=== PATIENT | male | born 2000 | race Caucasian/White ===

== ENCOUNTER 2018-11-12 10:26 | Emergency (ER) | payer BC, OTHER ==
[2018-11-12 13:32] VITALS: BP 150/80
[2018-11-12] MEDS ORDERED: Ondansetron ODT TAB* 4 MG PO ONE (14:01)
[2018-11-12] MEDS ORDERED: Acetaminophen TAB* 325 MG PO ONE (14:01)
--- NOTE | 2018-11-12 14:15 | UC ---
FLU HPI - HPI Summary HPI Summary: Pt presents with c/o generalized fatigue, malaise, fever, cough, decreased appetite X 3 days. - History of Current Complaint Chief Complaint: UCRespiratory Stated Complaint: FEVER, VOMITING Time Seen by Provider: 11/12/18 13:35 Hx Obtained From: Patient Onset/Duration: Sudden Onset, Lasting Days, Still Present, Worse Since - osnet Severity Currently: Mild Severity Initially: Moderate Pain Intensity: 7 Associated Signs & Symptoms: Positive: Fever, Myalgia, Cough, Sore Throat, Nasal Congestion, Headache Related Hx: Possible Flu/Infectious Exposure - Risk Factors Influenza Risk Factors: Negative - Allergy/Home Medications Allergies/Adverse Reactions: Allergies Allergy/AdvReac Type Severity Reaction Status Date / Time morphine Allergy Hives Verified 11/14/18 12:55 Penicillins Allergy Hives Verified 11/14/18 12:55 Home Medications: Home Medications Ibuprofen TAB* [Advil TAB*] 400 mg PO Q6H PRN 11/12/18 [History Confirmed ] PMH/Surg Hx/FS Hx/Imm Hx Previously Healthy: Yes - Surgical History Surgical History: Yes Surgery Procedure, Year, and Place: appendectomy. gallbladder - Family History Known Family History: Negative: Hypertension, Diabetes - Social History Occupation: Student Lives: With Family Alcohol Use: Weekly Substance Use Type: Marijuana Substance Use Comment - Amount & Last Used: daily usage Smoking Status (MU): Never Smoked Tobacco Have You Smoked in the Last Year: No - Immunization History Vaccination Up to Date: Yes Review of Systems All Other Systems Reviewed And Are Negative: Yes Constitutional: Positive: Fever, Chills, Fatigue Skin: Positive: Negative Eyes: Positive: Negative ENT: Positive: Sore Throat, Ear Ache, Nasal Discharge, Sinus Congestion, Sinus Pain/Tenderness Respiratory: Positive: Cough Cardiovascular: Positive: Negative Gastrointestinal: Positive: Negative Genitourinary: Positive: Negative Motor: Positive: Negative Neurovascular: Positive: Negative Musculoskeletal: Positive: Myalgia Neurological: Positive: Headache Psychological: Positive: Negative Is Patient Immunocompromised?: No Physical Exam Triage Information Reviewed: Yes Appearance: Ill-Appearing Vital Signs: Initial Vital Signs Temp 100 F 11/12/18 13:25 Pulse 103 11/12/18 13:25 Resp 16 11/12/18 13:25 BP 150/80 11/12/18 13:25 Pulse Ox 95 11/12/18 13:25 Vital Signs Reviewed: Yes Eye Exam: Normal ENT: Positive: Nasal congestion, TM bulging, TM red Dental Exam: Normal Neck exam: Normal Respiratory Exam: Normal Cardiovascular Exam: Normal Musculoskeletal Exam: Normal Neurological Exam: Normal Psychological Exam: Normal Skin Exam: Normal Diagnostics - Laboratory Diagnostic Studies Completed/Ordered: rapid flu: negative - Radiology No standard instances Radiology Interpretation Completed By: Radiologist - IMPRESSION: NO EVIDENCE FOR ACTIVE CARDIOPULMONARY DISEASE. Flu Course/Dx - Differential Dx/Diagnosis Differential Diagnosis/HQI/PQRI: Influenza, Upper Respiratory Infection Provider Diagnosis: Bronchitis Discharge - Sign-Out/Discharge Documenting (check all that apply): Patient Departure All imaging exams completed and their final reports reviewed: Yes - Discharge Plan Condition: Stable Disposition: HOME Prescriptions: Azithromycin TAB* [Zithromax TAB (Z-DEANNA) 250 mg #6 tabs] 2 tab PO .TODAY, THEN 1 DAILY #1 deanna Benzonatate CAP* [Tessalon 100 MG CAP*] 100 mg PO Q8H PRN #21 cap PRN Reason: Cough Patient Education Materials: Acute Bronchitis (ED) Referrals: Mahin Modi MD [Primary Care Provider] - If Needed - Billing Disposition and Condition Condition: STABLE Disposition: Home - Attestation Statements Provider Attestation: Per institutional requirements, I have reviewed the chart, however, I was not consulted specifically or made aware of this patient by the midlevel provider. I did not personally evaluate, interact with , or disposition this patient.
== END 2018-11-12 14:37 | disposition home or self-care (01) ==
LOC: UCCORT 10:26
DX: J40 Bronchitis, not specified as acute or chronic (principal); Z88.0 Allergy status to penicillin; Z88.5 Allergy status to narcotic agent
CPT/HCPCS: 71046; 99212; A9270-GY; G0463

== ENCOUNTER 2018-11-14 11:13 | Emergency (ER) | payer OTHER ==
--- NOTE | 2018-11-14 13:20 | UC ---
HPI Febrile Illness - HPI Summary HPI Summary: He has been sick since about 6 days with fever, vomiting, diarrhea. He is home from college. No known meningitis contacts at school or dorm. His imm are UTD including meningitis. He has not been able to eat or drink hardly anything. He is becoming confused or foggy per mother. He has a headache as well. Flu here was neg and he has been on z pack. - History of Current Complaint Chief Complaint: UCGI Time Seen by Provider: 11/14/18 12:55 Hx Obtained From: Patient, Family/Park Recreation Manager Hx From Patient Unobtainable Due To: Altered Mental Status Onset/Duration: Started Days Ago Timing: Constant, Lasting Days Initial Severity: Moderate Current Severity: Severe Pain Intensity: 8 Aggravating Factors: Other: - eating. Alleviating Factors: Nothing Associated Signs and Symptoms: Chills, Cough, Diarrhea, Dizziness, Headache, Myalgia, Nausea, Vomiting, Weakness - Allergy/Home Medications Allergies/Adverse Reactions: Allergies Allergy/AdvReac Type Severity Reaction Status Date / Time morphine Allergy Hives Verified 11/14/18 12:55 Penicillins Allergy Hives Verified 11/14/18 12:55 PMH/Surg Hx/FS Hx/Imm Hx Previously Healthy: Yes - Surgical History Surgical History: Yes Surgery Procedure, Year, and Place: appendectomy. gallbladder - Family History Known Family History: Negative: Hypertension, Diabetes - Social History Occupation: Student Alcohol Use: Occasionally Substance Use Type: Marijuana Substance Use Comment - Amount & Last Used: daily usage Smoking Status (MU): Never Smoked Tobacco Have You Smoked in the Last Year: No - Immunization History Vaccination Up to Date: Yes Review of Systems All Other Systems Reviewed And Are Negative: Yes Constitutional: Positive: Fever, Chills ENT: Positive: Sinus Congestion Respiratory: Positive: Cough Gastrointestinal: Positive: Vomiting, Diarrhea Musculoskeletal: Positive: Myalgia Neurological: Positive: Headache, Weakness Is Patient Immunocompromised?: No Physical Exam Triage Information Reviewed: Yes Completion Of Physical Exam Limited Due To: Altered Mental Status - at first he appears malaise but become weaker and has syncope during my exam. Appearance: Well-Nourished Vital Signs: Initial Vital Signs Temp 102.6 F 11/14/18 12:56 Pulse 110 11/14/18 12:56 Resp 20 11/14/18 12:56 BP 117/65 11/14/18 12:56 Pulse Ox 97 11/14/18 12:56 Vital Signs Reviewed: Yes Eyes: Positive: Conjunctiva Inflamed ENT: Positive: Hearing grossly normal, Pharynx normal, Nasal congestion, TM bulging, TM red, Other - Jasen purulent effusions of the ears.. Negative: Tonsillar swelling, Tonsillar exudate, Trismus, Muffled voice, Sinus tenderness Neck: Positive: Supple, Nontender, No Lymphadenopathy. Negative: Nuchal Rigidity Respiratory: Positive: Chest non-tender, Lungs clear, Normal breath sounds, No respiratory distress, No accessory muscle use. Negative: Respiratory distress, Decreased breath sounds, Accessory muscle use, Crackles, Rhonchi, Stridor, Wheezing Cardiovascular: Positive: No Murmur, Pulses Normal, Brisk Capillary Refill, Tachycardia Abdomen Description: Positive: No Organomegaly, Soft. Negative: Distended, Guarding Musculoskeletal: Positive: Strength Intact, ROM Intact, No Edema Neurological: Positive: Fatigued, Lethargic Psychological: Positive: Abnormal Response To Family Skin: Negative: Rashes Course/Dx - Course Assessment/Plan: d/w [facility] at [place] has heard my assessment. I discuss possibility of meningitis versus encephalitis versus sepsi or viral illness. We start IV fluids and tylenol and motrin. I request rocephin 2gm with IV fluids but I am told that this is not possible to infuse in route with EMT. He would need to finish IV abx then be transported and delay in care is not an option. At time of EMS arrival he is now alert and laying down with IV and fluids running. - Febrile Illness Differential Diagnoses: Bacteremia, Cellulitis, Encephalitis, Endocarditis, Fever of Unknown Origin, Medication Reaction, Meningitis, Pneumonia, [place] Spotted Fever, Sepsis, Viremia - Diagnoses Provider Diagnosis: Fever, Altered mental state, Otitis media Discharge - Sign-Out/Discharge Documenting (check all that apply): Patient Departure All imaging exams completed and their final reports reviewed: No Studies - Discharge Plan Condition: Guarded Disposition: TRANS HIGHER LVL OF CARE FAC Referrals: Mahin Modi MD [Primary Care Provider] - - Billing Disposition and Condition Condition: GUARDED Disposition: Trans Higher Lvl of Care Fac
[2018-11-14] MEDS ORDERED: Ibuprofen TAB* 600 MG PO ONE (13:28)
[2018-11-14] MEDS ORDERED: Acetaminophen TAB* 325 MG PO ONE (13:28)
[2018-11-14] MEDS ORDERED: NS 0.9% 1000 ML* 1,000 ML IV ONE (13:29)
[2018-11-14] MEDS ORDERED: Acetaminophen TAB* 325 MG ONE (13:30)
[2018-11-14] MEDS ORDERED: Ibuprofen TAB* 200 MG ONE (13:30)
[2018-11-14 13:44] VITALS: BP 133/60
== END 2018-11-14 13:26 | disposition short-term general hospital (02) ==
LOC: UCCORT 11:13
DX: R50.9 Fever, unspecified (principal); R41.82 Altered mental status, unspecified; H66.90 Otitis media, unspecified, unspecified ear; Z88.0 Allergy status to penicillin; Z88.5 Allergy status to narcotic agent
CPT/HCPCS: 99213; A9270-GY; G0463

== ENCOUNTER 2019-10-16 12:06 | Emergency (ER) | payer OTHER ==
[2019-10-16 13:39] VITALS: BP 122/73
--- NOTE | 2019-10-16 14:22 | UC ---
Throat Pain/Nasal Dejuan HPI - HPI Summary HPI Summary: Pt presents with c/o ST X 5 days. Pt reports that he had nasal congestion and cough that have improved but continues to have ST that is not improving. Pt denies hx of mono. - History of Current Complaint Chief Complaint: UCRespiratory Stated Complaint: SORE THROAT Time Seen by Provider: 10/16/19 13:48 Hx Obtained From: Patient Onset/Duration: Sudden Onset, Lasting Days, Still Present, Worse Since - onset Severity: Moderate Pain Intensity: 4 Associated Signs & Symptoms: Positive: Dysphagia - pain with swallowing - Epiglottits Risk Factors Epiglottis Risk Factors: Negative - Allergies/Home Medications Allergies/Adverse Reactions: Allergies Allergy/AdvReac Type Severity Reaction Status Date / Time azithromycin [From Zithromax] Allergy Diarrhea Verified 10/16/19 13:34 morphine Allergy Hives Verified 10/16/19 13:34 Penicillins Allergy Hives Verified 10/16/19 13:34 Home Medications: Home Medications D-Methorphan/PE/Acetaminophen [Daytime Cold Multi-Symp Gelcap] 2 each PO BID PRN 10/16/19 [History Confirmed 10/16/19] PMH/Surg Hx/FS Hx/Imm Hx Previously Healthy: Yes - Surgical History Surgical History: Yes Surgery Procedure, Year, and Place: appendectomy. gallbladder - Family History Known Family History: Negative: Hypertension, Diabetes - Social History Occupation: Student - [employer] Lives: Dormitory/Roommates Alcohol Use: Occasionally Substance Use Type: Marijuana Substance Use Comment - Amount & Last Used: daily usage Smoking Status (MU): Never Smoked Tobacco Have You Smoked in the Last Year: No - Immunization History Vaccination Up to Date: Yes Review of Systems All Other Systems Reviewed And Are Negative: Yes Constitutional: Positive: Fever, Fatigue Skin: Positive: Negative Eyes: Positive: Negative ENT: Positive: Sore Throat, Nasal Discharge Respiratory: Positive: Cough Cardiovascular: Positive: Negative Gastrointestinal: Positive: Negative Genitourinary: Positive: Negative Motor: Positive: Negative Neurovascular: Positive: Negative Musculoskeletal: Positive: Myalgia Neurological: Positive: Negative Psychological: Positive: Negative Is Patient Immunocompromised?: No Physical Exam Triage Information Reviewed: Yes Appearance: Well-Appearing Vital Signs: Initial Vital Signs Temp 98.4 F 10/16/19 13:35 Pulse 96 10/16/19 13:35 Resp 16 10/16/19 13:35 BP 122/73 10/16/19 13:35 Pulse Ox 98 10/16/19 13:35 Vital Signs Reviewed: Yes Eye Exam: Normal ENT: Positive: Tonsillar swelling, Tonsillar exudate Dental Exam: Normal Neck: Positive: Enlarged Nodes @ Respiratory Exam: Normal Cardiovascular Exam: Normal Musculoskeletal Exam: Normal Neurological Exam: Normal Psychological Exam: Normal Skin Exam: Normal Throat Pain/Nasal Course/Dx - Course Course Of Treatment: Pt declined mono testing. - Differential Dx/Diagnosis Differential Diagnosis/HQI/PQRI: Mononucleosis, Pharyngitis, Tonsillitis Provider Diagnosis: Sore throat (viral) Discharge ED - Sign-Out/Discharge Documenting (check all that apply): Patient Departure All imaging exams completed and their final reports reviewed: No Studies - Discharge Plan Condition: Stable Disposition: HOME Patient Education Materials: Tonsillitis (ED) Referrals: Mahin Modi MD [Primary Care Provider] - If Needed Additional Instructions: Please follow up with your PCP as needed. We discussed the possibility of having mono and you have declined testing. If your symptoms persist and do not improve please follow up to have further testing and evaluation. - Billing Disposition and Condition Condition: STABLE Disposition: Home
== END 2019-10-16 14:22 | disposition home or self-care (01) ==
LOC: UCCORT 12:06
DX: J02.9 Acute pharyngitis, unspecified (principal); R53.83 Other fatigue; Z88.0 Allergy status to penicillin; Z88.1 Allergy status to other antibiotic agents; Z88.5 Allergy status to narcotic agent
CPT/HCPCS: 87651; 99211; G0463